=== PATIENT | male | born 1935 ===

== ENCOUNTER 2021-11-08 11:25 | Inpatient (IN) | payer MEDICARE, BC ==
[2021-11-08] MEDS ORDERED: Dextrose 5% in Water 1,000 ML IV PRN (12:20)
[2021-11-08] MEDS ORDERED: Dextrose 50% Abboject 50 ML SYRINGE SLOW IVP PRN (12:20)
[2021-11-08] MEDS ORDERED: HumaLOG 300 UNITS/3 ML VIAL SC PRN (12:20)
[2021-11-08] MEDS ORDERED: Nicotine 14 MG PATCH TD PRN (12:23)
[2021-11-08] MEDS ORDERED: Ondansetron PF 4 MG/2 ML Vial IVP PRN (12:23)
[2021-11-08] MEDS ORDERED: Ondansetron ODT 4 MG TAB PO PRN (12:23)
[2021-11-08] MEDS ORDERED: Senokot S 8.6-50 MG TAB PO PRN (12:23)
[2021-11-08] MEDS ORDERED: Acetaminophen 325 MG TAB PO PRN (12:23)
[2021-11-08] MEDS ORDERED: Albuterol Sulfate 2.5 mg/3 ml Neb NEB PRN (12:26)
[2021-11-08] MEDS ORDERED: hydrALAZINE 20 MG/ML VIAL SLOW IVP PRN (12:59)
[2021-11-08 13:09] LABS: #Lymphocytes 0.7 thou/uL (1.20-3.40); #Monocytes 0.1 thou/uL (0.11-0.59); #Neutrophils 9.1 thou/uL (1.40-6.50); %Basophils 0.2 % (0.0-1.0); %Eosinophils 0.4 % (0.0-10.0); %Lymphocytes 6.9 % (21.0-51.0); %Monocytes 0.8 % (0.0-10.0); %Neutrophils 91.7 % (42.0-75.0); Hemoglobin 14.2 g/dL (14.0-18.0); Mean Corpuscular HGB CONC 33.9 g/dL (32.0-36.0); Mean Corpuscular Hemoglobin 35.6 pg (27.0-31.0); Mean Platelet Volume 7.3 fL (7.4-10.4); Platelet Count 227 thou/uL (130-400); RBC Distribution Width 13.6 % (11.5-14.5); Red Blood Cell (RBC) Count 3.99 mill/uL (4.70-6.10); White Blood Cell (WBC) Count 9.9 thou/uL (4.8-10.8)
[2021-11-08 13:31] LABS: Anion Gap 18 mmol/L (10-20); BUN (Urea Nitrogen) 37 mg/dL (8.4-25.7); Calc. Creatinine Clearance 0 mL/min (70-130); Carbon Dioxide 27 mmol/L (23-31); Chloride 95 mmol/L (98-107); Potassium 4.2 mmol/L (3.5-5.1); Sodium 136 mmol/L (136-145)
[2021-11-08 13:32] LABS: Calcium 8.9 mg/dL (7.8-10.44); Glucose 150 mg/dL (83-110); Magnesium 1.2 mg/dL (1.6-2.6)
[2021-11-08 13:37] LABS: Troponin I 0.012 ng/mL (< 0.028)
[2021-11-08] MEDS ORDERED: Magnesium Sulfate 4 GM in Sodium Chloride 0.9% 250 ML 250 ML IVPB SCH (13:38)
[2021-11-08] MEDS ORDERED: Furosemide 40 MG/4 ML VIAL SLOW IVP ONE (14:00)
[2021-11-08 14:06] VITALS: BMI 34.9
[2021-11-08] MEDS: Furosemide 40 MG/4 ML VIAL SLOW IVP SCH (14:44)
[2021-11-08] MEDS: Apixaban 2.5 MG TAB PO SCH (21:16)
[2021-11-08] MEDS: Simvastatin 10 MG TAB PO SCH (21:16)
[2021-11-08 23:21] LABS: SARS-CoV-2 PCR by NAA Not Detected (NotDetected)
[2021-11-09 04:44] LABS: #Monocytes 0.4 thou/uL (0.11-0.59); #Neutrophils 8.9 thou/uL (1.40-6.50); %Basophils 0.3 % (0.0-1.0); %Eosinophils 0.1 % (0.0-10.0); %Lymphocytes 9.8 % (21.0-51.0); %Neutrophils 85.8 % (42.0-75.0); Mean Corpuscular HGB CONC 33.9 g/dL (32.0-36.0); Mean Corpuscular Hemoglobin 35.4 pg (27.0-31.0); Mean Platelet Volume 7.4 fL (7.4-10.4); Platelet Count 238 thou/uL (130-400); RBC Distribution Width 13.5 % (11.5-14.5); Red Blood Cell (RBC) Count 3.67 mill/uL (4.70-6.10); White Blood Cell (WBC) Count 10.3 thou/uL (4.8-10.8)
[2021-11-09 05:08] LABS: Anion Gap 16 mmol/L (10-20); BUN (Urea Nitrogen) 34 mg/dL (8.4-25.7); Calc. Creatinine Clearance 54 mL/min (70-130); Calcium 8.7 mg/dL (7.8-10.44); Carbon Dioxide 31 mmol/L (23-31); Chloride 94 mmol/L (98-107); Glucose 178 mg/dL (83-110); Magnesium 1.9 mg/dL (1.6-2.6); Potassium 3.5 mmol/L (3.5-5.1); Sodium 137 mmol/L (136-145)
[2021-11-09] MEDS: Furosemide 40 MG/4 ML VIAL SLOW IVP SCH ×2 (06:16→14:25)
[2021-11-09] MEDS: HumaLOG 300 UNITS/3 ML VIAL SC PRN ×3 (06:16→17:05)
[2021-11-09] MEDS: Allopurinol 300 MG TAB PO SCH (08:54)
[2021-11-09] MEDS: Apixaban 2.5 MG TAB PO SCH ×2 (08:54→20:06)
[2021-11-09] MEDS: predniSONE 5 MG TAB PO SCH (08:55)
[2021-11-09] MEDS: Calcium Carbonate 600 MG TAB PO SCH (08:55)
[2021-11-09] MEDS ORDERED: Folic Acid 1 MG TAB PO SCH (14:15)
[2021-11-09] MEDS ORDERED: Cyanocobalamin (Vitamin B-12) 1,000 MCG TAB PO SCH (14:15)
[2021-11-09] MEDS ORDERED: Senokot 8.6 MG TAB PO PRN (14:34)
[2021-11-09] MEDS ORDERED: Polyethylene Glycol 3350 17 GM Packet PO SCH (14:45)
[2021-11-09] MEDS: Simvastatin 10 MG TAB PO SCH (20:06)
[2021-11-09] MEDS ORDERED: Bisacodyl 10 MG SUPP PR SCH (21:00)
[2021-11-10 04:18] LABS: #Lymphocytes 1.9 thou/uL (1.20-3.40); #Monocytes 1.1 thou/uL (0.11-0.59); #Neutrophils 11.5 thou/uL (1.40-6.50); %Basophils 0.3 % (0.0-1.0); %Eosinophils 0.1 % (0.0-10.0); %Lymphocytes 12.8 % (21.0-51.0); %Monocytes 7.4 % (0.0-10.0); %Neutrophils 79.4 % (42.0-75.0); Mean Corpuscular HGB CONC 33.3 g/dL (32.0-36.0); Mean Corpuscular Hemoglobin 35.2 pg (27.0-31.0); Mean Platelet Volume 7.2 fL (7.4-10.4); Platelet Count 276 thou/uL (130-400); RBC Distribution Width 13.6 % (11.5-14.5); Red Blood Cell (RBC) Count 3.98 mill/uL (4.70-6.10); White Blood Cell (WBC) Count 14.5 thou/uL (4.8-10.8)
[2021-11-10 04:30] LABS: Anion Gap 16 mmol/L (10-20); BUN (Urea Nitrogen) 31 mg/dL (8.4-25.7); Calc. Creatinine Clearance 55 mL/min (70-130); Calcium 9.2 mg/dL (7.8-10.44); Carbon Dioxide 32 mmol/L (23-31); Chloride 93 mmol/L (98-107); Glucose 154 mg/dL (83-110); Magnesium 1.4 mg/dL (1.6-2.6); Potassium 3.4 mmol/L (3.5-5.1); Sodium 138 mmol/L (136-145)
[2021-11-10] MEDS: guaiFENesin ER 600 MG TAB PO SCH ×2 (04:31→10:03)
[2021-11-10] MEDS: Furosemide 40 MG/4 ML VIAL SLOW IVP SCH (05:25)
[2021-11-10] MEDS ORDERED: Cyanocobalamin (Vitamin B-12) 1,000 MCG TAB PO SCH (09:00)
[2021-11-10] MEDS ORDERED: Magnesium Sulfate In Water 4 GM in Premix Bag 1 BAG IVPB SCH (09:00)
[2021-11-10] MEDS ORDERED: Potassium Bicarbonate/Cit Ac 20 MEQ TAB PO SCH ×2 (09:00→17:00)
[2021-11-10] MEDS ORDERED: Polyethylene Glycol 3350 17 GM Packet PO SCH (09:00)
[2021-11-10] MEDS ORDERED: Folic Acid 1 MG TAB PO SCH (09:00)
[2021-11-10] MEDS: predniSONE 5 MG TAB PO SCH (10:01)
[2021-11-10] MEDS: Allopurinol 300 MG TAB PO SCH (10:01)
[2021-11-10] MEDS: Apixaban 2.5 MG TAB PO SCH (10:02)
[2021-11-10] MEDS: Calcium Carbonate 600 MG TAB PO SCH (10:02)
[2021-11-10] MEDS: HumaLOG 300 UNITS/3 ML VIAL SC PRN (11:12)
[2021-11-10 12:07] VITALS: BP 115/68; TEMP 97.6
== END 2021-11-10 15:59 | disposition home or self-care (01) | DRG 291 ==
LOC: 2NO 11:25
PROVIDERS: ADMIT Internal Medicine; ATTEND Internal Medicine
DX: I13.0 Hypertensive heart and chronic kidney disease with heart failure and stage 1 through stage 4 chronic kidney disease, or unspecified chronic kidney disease (principal); Z20.822 Contact with and (suspected) exposure to COVID-19; I50.33 Acute on chronic diastolic (congestive) heart failure; J96.01 Acute respiratory failure with hypoxia; J44.1 Chronic obstructive pulmonary disease with (acute) exacerbation; N17.9 Acute kidney failure, unspecified; I48.21 Permanent atrial fibrillation; N18.30 Chronic kidney disease, stage 3 unspecified; E11.22 Type 2 diabetes mellitus with diabetic chronic kidney disease; E78.5 Hyperlipidemia, unspecified; E83.42 Hypomagnesemia; E66.9 Obesity, unspecified; D51.9 Vitamin B12 deficiency anemia, unspecified; D52.9 Folate deficiency anemia, unspecified; I45.10 Unspecified right bundle-branch block; M10.9 Gout, unspecified; Z96.653 Presence of artificial knee joint, bilateral; F17.220 Nicotine dependence, chewing tobacco, uncomplicated; Z96.642 Presence of left artificial hip joint; Z60.2 Problems related to living alone; R49.0 Dysphonia; E87.6 Hypokalemia; Z79.01 Long term (current) use of anticoagulants; Z71.6 Tobacco abuse counseling; Z68.33 Body mass index [BMI] 33.0-33.9, adult; Z79.899 Other long term (current) drug therapy; Z79.84 Long term (current) use of oral hypoglycemic drugs; Z90.49 Acquired absence of other specified parts of digestive tract
CPT/HCPCS: 36415; 36416; 80048; 82607; 82746; 83735; 83880; 84443; 84484; 85025; 94640; 97139; J1815; J1940; J3475; J7050; J7512; J7620; U0003; U0005